=== PATIENT | female | born 1950 | race Caucasian/White ===

== ENCOUNTER 2016-10-01 16:41 | Emergency (ER) | payer BC ==
[2016-10-01] MEDS ORDERED: Albuterol/Ipratropium NEB.SOL* Albuterol 2.5 MG/Ipratropium 0.5 MG 3 ML INH ONE (16:47)
[2016-10-01 16:50] VITALS: BP 148/109
--- NOTE | 2016-10-01 16:53 | UC ---
Respiratory Complaint HPI - HPI Summary HPI Summary: In recent days has noticed an increased nasal drip that pt thinks is probably allergies. Has mild asthma that is not responding well to albuterol since yesterday. Has needed prednisone in the past and feels she may be at that point now. - History of Current Complaint Stated Complaint: ASTHMA Time Seen by Provider: 10/01/16 16:41 Hx Obtained From: Patient ?: No Onset/Duration: Gradual Onset, Lasting Days Timing: Constant Severity Initially: Mild Severity Currently: Mild Character: Cough: Nonproductive Aggravating Factors: Allergens, Exertion, Deep Breaths, Recumbent Position Alleviating Factors: Upright Position Associated Signs And Symptoms: Positive: Wheezing, Nasal Congestion. Negative: Fever, Chills - Allergies/Home Medications Allergies/Adverse Reactions: Allergies Allergy/AdvReac Type Severity Reaction Status Date / Time Ibuprofen [From Motrin] Allergy Rash Verified 05/19/13 18:01 Latex Allergy Rash Verified 10/01/16 16:46 Sulfa Antibiotics Allergy Hives Verified 05/19/13 18:01 iv contrast media Allergy See Comment Uncoded 05/19/13 18:01 Home Medications: Home Medications Albuterol 2.5MG/3ML (0.083%)* [Ventolin 2.5 MG/3 ML NEB.ANDREW*] 1 inh INH Q4H PRN 10/01/16 [History Confirmed 10/01/16] PMH/Surg Hx/FS Hx/Imm Hx Respiratory History: Asthma - Surgical History Surgical History: None - Social History Occupation: Employed Part-time Alcohol Use: None Substance Use Type: None Review of Systems Constitutional: Negative Skin: Negative Eyes: Negative ENT: Negative Respiratory: Shortness Of Breath, Cough Cardiovascular: Negative Gastrointestinal: Negative Genitourinary: Negative Motor: Negative Neurovascular: Negative Musculoskeletal: Negative Neurological: Negative Psychological: Negative All Other Systems Reviewed And Are Negative: Yes Physical Exam Triage Information Reviewed: Yes Appearance: Well-Appearing, No Pain Distress, Obese Vital Signs Reviewed: Yes Eye Exam: Normal Eyes: Positive: Conjunctiva Clear ENT Exam: Normal ENT: Positive: Normal ENT inspection, Hearing grossly normal, Pharynx normal, TMs normal Dental Exam: Normal Neck exam: Normal Respiratory Exam: Other - freq dry cough Respiratory: Positive: No respiratory distress, Wheezing - minimal at bases Cardiovascular Exam: Normal Cardiovascular: Positive: RRR, No Murmur Musculoskeletal Exam: Normal Neurological Exam: Normal Neurological: Positive: Alert Psychological Exam: Normal Re-Evaluation - Re-Evaluation First Eval Re-Evaluation Time: 17:16 Change: Improved - improved air movement, wheezing reduced, pt reports feeling better Respiratory Course/Dx - Course Course Of Treatment: Advised pt to see PCP next week if sx persist at all. - Differential Dx/Diagnosis Provider Diagnoses: Asthma exacerbation Discharge - Discharge Plan Condition: Stable Disposition: HOME Prescriptions: predniSONE TAB* [Deltasone TAB*] 50 mg PO DAILY #5 tab Patient Education Materials: Bronchospasm (ED) Referrals: Nicolette Gabriel MD [Primary Care Provider] - Additional Instructions: If you have severe difficulty breathing that your nebulized albuterol doesn't help, please go to the emergency department.
== END 2016-10-01 17:22 | disposition home or self-care (01) ==
LOC: UCEAST 16:41
DX: J45.901 Unspecified asthma with (acute) exacerbation (principal); R09.81 Nasal congestion; E66.9 Obesity, unspecified; Z88.2 Allergy status to sulfonamides; Z88.6 Allergy status to analgesic agent; Z91.041 Radiographic dye allergy status; Z91.040 Latex allergy status
CPT/HCPCS: 99202; A9270-GY; G0463

== ENCOUNTER 2017-04-22 15:14 | Emergency (ER) | payer MEDICARE, BC ==
[2017-04-22 15:55] VITALS: BP 148/68
--- NOTE | 2017-04-22 16:47 | UC ---
Throat Pain/Nasal [place]ako HPI - HPI Summary HPI Summary: 67 y/o female with h/o intermittent asthma, multiple other medical co- morbidities c/o 24 hours of- sinus pain, right sided, fever to 100.5, chills, fatigue, sinus pressure and coughing- non-productive. + sinus drainage. denies recent abx use. has inhaler, neb at home with medication. - History of Current Complaint Chief Complaint: UCRespiratory Stated Complaint: sinus complaint Time Seen by Provider: 04/22/17 16:14 Hx Obtained From: Patient ?: No Onset/Duration: Sudden Onset, Lasting Days - 24 hours Severity: Moderate Pain Intensity: 8 Pain Scale Used: 0-10 Numeric Cough: Nonproductive Associated Signs & Symptoms: Positive: Sinus Discomfort, Nasal Discharge, Fever , Vomiting - 2 days ago. Negative: Wheezing - Epiglottits Risk Factors Epiglottis Risk Factors: Negative - Allergies/Home Medications Allergies/Adverse Reactions: Allergies Allergy/AdvReac Type Severity Reaction Status Date / Time ibuprofen Allergy Rash Verified 04/22/17 15:56 latex Allergy Rash Verified 04/22/17 15:56 Sulfa (Sulfonamide Allergy Hives Verified 04/22/17 15:56 Antibiotics) iv contrast Allergy See Comment Uncoded 04/22/17 15:56 PMH/Surg Hx/FS Hx/Imm Hx Previously Healthy: No - intermittent asthma - Surgical History Surgical History: None - Social History Alcohol Use: None Substance Use Type: None Smoking Status (MU): Never Smoked Tobacco Review of Systems Constitutional: Fever, Chills, Fatigue ENT: Nasal Discharge, Sinus Congestion, Sinus Pain/Tenderness Respiratory: Cough Is Patient Immunocompromised?: No All Other Systems Reviewed And Are Negative: Yes Physical Exam Triage Information Reviewed: Yes Appearance: Well-Appearing, No Pain Distress, Well-Nourished Vital Signs: Initial Vital Signs Temp 99.8 F 04/22/17 15:49 Pulse 107 04/22/17 15:49 Resp 20 04/22/17 15:49 BP 148/68 04/22/17 15:49 Pulse Ox 94 04/22/17 15:49 Vital Signs Reviewed: Yes Eyes: Positive: Conjunctiva Clear ENT: Positive: Pharynx normal, Nasal congestion - right sided frontal, TMs normal - b/l, Sinus tenderness - right sided frontal with percussion, Uvula midline. Negative: Pharyngeal erythema, TM bulging, TM dull, TM red, Tonsillar swelling, Tonsillar exudate, Hoarse voice Neck: Positive: Supple, Nontender, Enlarged Nodes @ - minimal submand Respiratory: Positive: Chest non-tender, Lungs clear, Normal breath sounds, No respiratory distress, No accessory muscle use, Respiratory distress. Negative: Crackles, Rhonchi, Stridor, Wheezing Cardiovascular: Positive: RRR, No Murmur Abdomen Description: Negative: CVA Tenderness (R), CVA Tenderness (L) Neurological: Positive: Fatigued Skin Exam: Normal Throat Pain/Nasal Course/Dx - Course Course Of Treatment: sinusitis, follow up with pcp within 2-3 days for re-eval, abx given, patient has medication for SOB if occurs - Differential Dx/Diagnosis Differential Diagnosis/HQI/PQRI: Influenza, Laryngitis, Otitis Media, Pharyngitis Provider Diagnoses: sinusitis Discharge - Discharge Plan Condition: Fair Disposition: HOME Prescriptions: Azithromyxin KOTA (NF) [Z-Kota (Zithromax) 250 mg tabs #6] 2 tab PO .TODAY, THEN 1 DAILY #6 tab Patient Education Materials: Sinusitis (ED) Referrals: Nicolette Gabriel MD [Primary Care Provider] - Additional Instructions: - Increase fluid intake - TYlenol as needed for fever, headache - GO to ER with increased headache, fever > 104, shortness of breath - Inhaler, nebulizers as needed for shortness of breath - antibiotics as directed - Follow up with primary care doctor within 2-3 days if no improvement
== END 2017-04-22 16:49 | disposition home or self-care (01) ==
LOC: UCEAST 15:14
DX: J32.9 Chronic sinusitis, unspecified (principal); J45.909 Unspecified asthma, uncomplicated; Z88.2 Allergy status to sulfonamides; Z88.6 Allergy status to analgesic agent; Z91.041 Radiographic dye allergy status; Z91.040 Latex allergy status
CPT/HCPCS: 99212; G0463

== ENCOUNTER 2018-01-26 14:16 | Emergency (ER) | payer MEDICARE, BC ==
--- OUTSIDE RECORDS SUMMARY | 2018-01-26 14:36 | XMS REPORT ---
:1950 External Reference #:[id number] Author Organization [facility] Address [address] [place] [address] Phone [phone] Care Team Providers Name Role Phone Nicolette Gabriel MD Care Team Information Director Fraud Unavailable Nicolette Gabriel MD Primary Care Physician Unavailable Payers Type Date Identification Numbers Payment Provider Subscriber Medicare Primary Effective: Policy Number: Medicare Renuka Mccollum 2017 [id number] PayID: [id number] [address] [place] [address] [facility] Policy Number: [id number] [facility] Renuka Mccollum PayID: [id number] [address] [place] [address] Problems Date Description Provider Status Onset: 11/16/2017 Diverticular disease of colon Cal Zamora Active M.D. Onset: 11/16/2017 Abnormal findings on dx imaging Cal Zamora Active of oth body structures M.Nasima Onset: 11/16/2017 Imaging of abdomen abnormal Cal Zamora Active M.D. 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 Onset: 06/14/2012 Chondromalacia of patella Jamar Dean MD, FACS Active Onset: 06/14/2012 Sprain of ankle Jamar Dean MD, DO Active Onset: 06/14/2012 Contusion of knee Jamar Dean MD, FACS Active Family History Date Family Member(s) Problem(s) Comments Father Diabetes Father due to Heart Disease () Father Heart Disease Father due to Diabetes () Mother Heart Attack First Brother due to Stroke () Second Brother due to Heart Disease () First Sister Cancer Social History Type Date Description Comments Marital Status Lives With Diet Patient is on a gluten-free diet Occupation Retired Cigarette Use Never Smoked Cigarettes ETOH Use Denies alcohol use Smoking Patient denies history of smoking Recreational Drug Use Never Used Drugs Daily Caffeine Patient consumes minimal amounts of caffeine Allergies, Adverse Reactions, Alerts Date Description Reaction Status Severity Comments 06/14/2012 Motrin active 06/14/2012 Sulfa Drugs active 06/14/2012 Contrast Dye active 03/10/2017 Latex active Medications Medication Date Status Form Strength Qnty SIG Indications Ordering Provider Calcium + D Active Tablets 315-200mg 1 tab qd Unknown /0000 -Unit Multivitamins Active Tablets 1 po qd Unknown /0000 Fish Oil Active Capsules 1000mg po bid Unknown /0000 Flaxseed Oil Active Capsules 1200mg 1 cap bid Unknown / Albuterol Active Powder 1 puff q4h Unknown /0000 prn Vitamin C Active Tablets 500mg 1 by mouth Unknown /0000 every day Fiber Complete Active Tablets 2 caps qd Unknown /0000 Fluticasone Active Suspension 50mcg/Act 1 spray to Unknown Propionate /0000 each nare every day Levocetirizine Active Tablets 5mg 1 by mouth Unknown Dihydrochloride /0000 every day Omeprazole Active Capsules DR 20mg 1 by mouth Unknown /0000 every day Probiotic Active Capsules 1 by mouth Unknown /0000 every day Epipen 2-Jose Active Solution 0.3mg/0.3 use as Unknown /0000 Auto-Inject ML directed as needed for allergic reaction Xyzal Hx Tablets 5mg 30tab po qhs Unknown /0000 s - 11/16 Advair Diskus Hx Aerosol 2 puff bid - 03/10 Flonase Hx Suspension 50mcg/Act 1 intranasal - qd 11/[address] OTC Hx Tablets [address] 20mg 1 po bid Unknown - 11/16 Vital Signs Date Vital Result Comment 01/10/2018 BP Systolic 129 mmHg BP Diastolic 65 mmHg Body Temperature 97.3 F Heart Rate 72 /min Respiratory Rate 16 /min Height 61.30 inches 5'1.30" Weight 176.38 lb BMI (Body Mass Index) 33.0 kg/m2 BSA (Body Surface Area) 1.80 m2 [place] body weight in kilograms 48 O2 % BldC Oximetry 98 % Pain Level 0 11/16/2017 BP Systolic Sitting Right Arm 124 mmHg BP Diastolic Sitting Right Arm 76 mmHg Heart Rate 71 /min Respiratory Rate 14 /min Height 62 inches 5'2" Weight 175.25 lb BMI (Body Mass Index) 32.1 kg/m2 BSA (Body Surface Area) 1.81 m2 [place] body weight in kilograms 50 O2 % BldC Oximetry 100 % 06/14/2012 BP Systolic Sitting Left Arm 120 mmHg BP Diastolic Sitting Left Arm 80 mmHg Height 62 inches 5'2" Weight 167.00 lb BMI (Body Mass Index) 30.5 kg/m2 BSA (Body Surface Area) 1.77 m2 Results Test Date Test Result H/L Range Note CBC W/Automated Diff 01/10/2018 White Blood Count 5.2 K/uL 3.1-10.7 1 Red Blood Count 4.85 M/uL 3.90-5.40 1 Hemoglobin 14.6 gm/dL 11.6-15.8 1 Hematocrit 45.2 % 36.0-46.1 1 Mean Cell Volume 93.2 fl 80.9-99.0 1 Mean Corpuscular HGB 30.1 pg 25.9-32.7 1 Mean Corpuscular HGB Conc 32.3 g/dL 30.8-34.3 1 Platelet Count 259 K/uL 155-360 1 Red Cell Distri Width SD 46.5 fl 3-47 1 Red Cell Distri Width %CV 14.0 % 11.7-14.4 1 Mean Platelet Volume 11.2 fL 8.9-12.4 1 Neut% 67.6 % 40.4-72.8 1 Lymph % 22.2 % 20.0-42.0 1 Tripp % 6.9 % 4.3-13.2 1 Eo% 2.9 % 0.0-6.6 1 Bas% 0.4 % 0.0-1.1 1 Neut# 3.51 K/uL 1.8-7.0 1 Lymph # 1.15 K/uL 1.0-4.0 1 Tripp # 0.36 K/uL 0.3-0.9 1 Eos # 0.15 K/uL 0.0-0.5 1 Baso # 0.02 K/uL 0.0-0.1 1 Comprehensive Metabolic Panel 01/10/2018 Glucose 89 mg/dL 74-106 1 BUN 18 mg/dL 7-18 1 Creatinine 1.0 mg/dL 0.6-1.3 1 Glom Filtration Rate, Estimate 59 mL/min >60 1 If >60 mL/min >60 1, 2 BUN/Creat 18.0 ratio 1 Sodium 138 mmol/L 136-145 1 Potassium 4.3 mmol/L 3.5-5.1 1 Chloride 103 mmol/L 98-107 1 Carbon Dioxide 30 mmol/L 21-32 1 Anion Gap 5 mEq/L Low 8-16 1 Calcium 9.2 mg/dL 8.5-10.1 1 Total Protein 8.4 g/dL High 6.4-8.2 1 Albumin 4.0 g/dL 3.4-5.0 1 Globulin 4.4 g/dL High 1.9-4.3 1 Alb/Glob 0.9 ratio 1 Bilirubin,Total 0.5 mg/dL 0.2-1.0 1 Sgot/Ast 22 U/L 15-37 1 SGPT/Alt 29 U/L 12-78 1 Alkaline Phosphatase 64 U/L 45-117 1 Laboratory test finding 01/10/2018 LDH 232 U/L 84-246 1 Immunoglobulins A/G/M, QN, 01/10/2018 Immunoglobulin 1014 mg/dL 700-1600 1 Ser G,Quant,Serum Immunoglobulin A 204 mg/dL 87-352 1 Immunoglobulin M 60 mg/dL 26-217 1 Laboratory test 01/10/2018 Sedimentation Rate 17 mm/hr 0-30 1, 3 finding Toxoplasma Abs 01/10/2018 Toxoplasma IgG Antibody 20.1 IU/mL High 0.0-7.1 1, 4 Igg/Igm Toxoplasma IgM Antibody <3.0 AU/mL 0.0-7.9 1, 5 Comment: (SEE NOTE) 1, 6 Laboratory test finding 01/10/2018 Uric Acid 6.0 mg/dL 2.6-6.0 [address] Badillo Slide on file in <SEE NOTE> 1, 7 Ova1 11/17/2017 Cancer Antigen 125 8.7 U/mL 0.0-38.1 8, 9 He4 60.5 pmol/L 0.0-96.5 8, 10 Premenopausal [place] 1.09 See below 8 Premenopausal Interp: (SEE NOTE) 8, 11 Postmenopausal [place] 0.96 See below 8 Postmenopausal Interp: (SEE NOTE) 8, 12 Comment (SEE NOTE) 8, 13 CBC W/Automated Diff 11/17/2017 White Blood Count 4.0 K/uL 3.1-10.7 8 Red Blood Count 4.92 M/uL 3.90-5.40 8 Hemoglobin 14.8 gm/dL 11.6-15.8 8 Hematocrit 45.2 % 36.0-46.1 8 Mean Cell Volume 91.9 fl 80.9-99.0 8 Mean Corpuscular HGB 30.1 pg 25.9-32.7 8 Mean Corpuscular HGB Conc 32.7 g/dL 30.8-34.3 8 Platelet Count 259 K/uL 155-360 8 Red Cell Distri Width SD 47.9 fl High 3-47 8 Red Cell Distri Width %CV 14.6 % High 11.7-14.4 8 Mean Platelet Volume 10.9 fL 8.9-12.4 8 Neut% 56.8 % 40.4-72.8 8 Lymph % 31.3 % 20.0-42.0 8 Tripp % 7.8 % 4.3-13.2 8 Eo% 3.8 % 0.0-6.6 8 Bas% 0.3 % 0.0-1.1 8 Neut# 2.28 K/uL 1.8-7.0 8 Lymph # 1.25 K/uL 1.0-4.0 8 Tripp # 0.31 K/uL 0.3-0.9 8 Eos # 0.15 K/uL 0.0-0.5 8 Baso # 0.01 K/uL 0.0-0.1 8 Laboratory test finding 11/17/2017 Cea 1.3 ng/mL 8, 14 Arthritis Panel([place]) 06/28/2012 Sedimentation Rate 1 mm/hr 0-30 Rheumatoid Factor Screen NEGATIVE Negative Uric Acid 4.2 mg/dL 2.1-7.4 Antinuclear Antibodies, Ifa Negative . 15 CBS W/Automated Diff 06/28/2012 White Blood Count 6.2 K/uL 3.1-10.7 Red Blood Count 5.08 M/uL 3.90-5.40 Hemoglobin 15.8 gm/dL 11.6-15.8 Hematocrit 46.6 % High 36.0-46.1 Mean Cell Volume 91.7 fl 80.9-99.0 Mean Corpuscular HGB 31.1 pg 25.9-32.7 Mean Corpuscular HGB Conc 33.9 g/dL 30.8-34.3 Platelet Count 279 K/uL 155-360 Red Cell Distri Width SD 43.6 fl 3-47 Red Cell Distri Width %CV 13.1 % 11.7-14.4 Mean Platelet Volume 11.1 fL 8.9-12.4 Neut% 60.8 % 40.4-72.8 Lymph % 30.3 % 17.0-46.1 Tripp % 6.6 % 4.3-13.2 Eo% 2.1 % 0.0-6.6 Bas% 0.2 % 0.0-1.1 Neut# 3.79 K/uL 1.0-7.0 Lymph # 1.89 K/uL 0.8-3.4 Tripp # 0.41 K/uL 0.3-0.9 Eos # 0.13 K/uL 0.0-0.5 Baso # 0.01 K/uL 0.0-0.1 1 R93.5,K57.30 2 Note: Persistent reduction for 3 months or more in an eGFR <60 mL/min/1.73 m2 defines CKD. Patients with eGFR values >/=60 mL/min/1.73 m2 may also have CKD if evidence of persistent proteinuria is present. The original MDRD equation for estimated GFR is not valid for patients less than 18 years of age. Additional information may be found at www.kdoqi.org. 3 Method: Sediplast Modified Westergren 4 Negative <7.2 Equivocal 7.2 - 8.7 Positive >8.7 5 Negative <8.0 Equivocal 8.0 - 9.9 Positive >9.9 6 Results consistent with previous infection for more than six months. Performed at: [address] [id number] Document Preparation Specialist: Marimar Mackey MD, Phone: [phone] Slide on file in lab 8 R93.89, R93.5 9 Adebayo ECLIA methodology Values obtained with different assay methods or kits cannot be used interchangeably. Results cannot be interpreted as absolute evidence of the presence or absence of malignant disease. 10 Adebayo ECLIA methodology 11 If the patient is premenopausal, then the premenopausal ADY score of less than 1.14 is consistent with a low likelihood of finding a malignancy on surgery. 12 If the patient is postmenopausal, then the postmenopausal ADY score of less than 2.99 is consistent with a low likelihood of finding a malignancy on surgery. 13 The Risk for Ovarian Malignancy Algorithm (ADY) test is intended to aid in assessing whether a premenopausal or postmenopausal woman who presents with an ovarian adnexal mass is at high or low likelihood of finding malignancy on surgery. ADY is indicated for women who meet the following criteria: over age 18; ovarian adnexal mass present for which surgery is planned, and not yet referred to an oncologist. ADY must be interpreted in conjunction with an independent clinical and radiological assessment. The test is not intended as a screening or stand-alone diagnostic assay. HE4 and CA125 values obtained with different assay methods or kits cannot be used interchangeably. Performed at: [address] [id number] Document Preparation Specialist: Marimar Mackey MD, Phone: [phone] Performed at: [address] [id number] Document Preparation Specialist: Mateus Dunham MD, Phone: [phone] 14 Non-smokers ..... 0.0-3.0 ng/mL Smokers ......... 0.0-5.0 ng/mL THIS ASSAY IS NOT INTENDED A CANCER SCREENING TEST The concentration of CEA in a given specimen, determined with assays from different manufacturers, can vary due to differences in assay methods and reagent specificity. Values obtained from different assay methods cannot be used interchangeably. Method: Siemens Dimension [place] Chemiluminescent Immunoassay 15 Negative <1:80 Borderline 1:80 Positive >1:80 Performed at: RN - [facility] [address] [id number] Document Preparation Specialist: Marimar Mackey MD, Phone: [phone] Procedures Date CPT Code Description Status 10/04/2016 74152 Eye Exam New Patient Comprehensive Completed 06/14/2012 40324 Radiology, Ankle Complete Completed 06/14/2012 13948 Radiology, Knee 3 Views Completed Encounters Type Date Location Provider CPT E/M Dx Office Visit 11/16/2017 3:00p Surgical Office Cal Zamora [address]1757 R93.5 Felicity Higuera R93.89 K57.30 Office Visit 03/10/2017 10:30a [place] [address] H11.442 Office Visit 08/03/2012 8:45a Orthopaedic Office Jamar Dean, [address] 712.26 MD, FACS 845.00 726.73 717.7 Office Visit 06/28/2012 1:15p [place], [address] 924.11 FACS 712.26 845.00 726.73 Office Visit 06/14/2012 10:00a [place], [address] 719.47 FACS 719.46 924.11 845.00 717.7 712.26 726.73 Plan of Care Future Appointment(s):01/23/2018 10:00 am - Michelle Badillo DO at Oncology Office
[2018-01-26] MEDS ORDERED: NS 0.9% 1000 ML* 1,000 ML IV ONE (14:48)
--- NOTE | 2018-01-26 14:51 | ED ---
Neurological HPI - HPI Summary HPI Summary: Pt is a 67 y/o female who presents to the ED c/o weakness. Yesterday she began to have bilateral quadriceps weakness and several bouts of diarrhea. This morning the weakness progressed, and she now has difficulty walking. She feels that her legs are equally weak. Pt was sent by her PCP. She also c/o intermittent groin pain and runny nose. Pt denies any double vision, incontinence, difficulty with BMs, numbness, fever, congestion, or sore throat. She arrives in a wheelchair, and normally walks by herself. She is accompanied by her who has Parkinsons. Pt notes that she had lymph node swelling around either side of her aorta found on CT A/P. A colonoscopy a few months ago revealed diverticulosis. She has a familial essential tremor for the past 10 years. - History of Current Complaint Chief Complaint: EDWeakness Stated Complaint: GENERAL WEAKNESS Time Seen by Provider: 01/26/18 14:28 Hx Obtained From: Patient Onset/Duration: Gradual Onset, Started days ago - 1, Worse Since Timing: Constant Neurological Deficit Location: RLE, LLE Pain Intensity: 1 Character: Weak Aggravating: Nothing Alleviating: Nothing Associated Signs and Symptoms: Positive: Weakness, Diarrhea. Negative: Visual Changes, Incontinent Bladder/Bowel, Fever - Allergy/Home Medications Allergies/Adverse Reactions: Allergies Allergy/AdvReac Type Severity Reaction Status Date / Time ibuprofen Allergy Rash Verified 04/22/17 15:56 latex Allergy Rash Verified 04/22/17 15:56 Sulfa (Sulfonamide Allergy Hives Verified 04/22/17 15:56 Antibiotics) iv contrast Allergy See Comment Uncoded 04/22/17 15:56 Home Medications: Home Medications Albuterol inh POWDER (NF) [Proair Respiclick] 2 puff INH Q4HR 01/26/18 [History Confirmed 01/26/18] Ascorbic Acid TAB* [Vitamin C TAB*] 1,000 mg PO DAILY 01/26/18 [History Confirmed 01/26/18] Bacillus Coagulans [Probiotic] 1 cap PO DAILY 01/26/18 [History Confirmed ] Calcium Carbonate [Calcium] 1,500 mg PO DAILY 01/26/18 [History Confirmed ] Calcium Polycarbophil TAB* [Fibercon TAB*] 625 mg PO DAILY 01/26/18 [History Confirmed 01/26/18] Flaxseed Oil [Alsey-3 Flaxseed Oil] 1,200 mg PO BID 01/26/18 [History Confirmed 01/26/18] Fluticasone NASAL SPRAY 50MCG* [Flonase NASAL SPRAY 50MCG*] 1 spray BOTH NARES BID 01/26/18 [History Confirmed 01/26/18] LevoCETirizine TAB (NF) [Xyzal TAB (NF)] 5 mg PO QPM 01/26/18 [History Confirmed 01/26/18] Multivitamins/Minerals TAB* [Theragran/minerals TAB*] 1 tab PO DAILY 01/26/18 [ History Confirmed 01/26/18] Alsey-3 Fatty Acids (Nf) [Fish Oil (NF)] 1,000 mg PO DAILY 01/26/18 [History Confirmed 01/26/18] PMH/Surg Hx/FS Hx/Imm Hx Cardiovascular History: Reports: Hx Hypercholesterolemia Respiratory History: Reports: Hx Asthma GI History: Reports: Hx Diverticulosis, Other GI Disorders - colon polyp Musculoskeletal History: Reports: Hx Osteoporosis Sensory History: Reports: Hx Contacts or Glasses Infectious Disease History: No Infectious Disease History: Denies: Traveled Outside the [place] in Last 30 Days - Family History Known Family History: Positive: Cardiac Disease, Hypertension, Diabetes - Social History Alcohol Use: None Hx Substance Use: No Substance Use Type: Reports: None Hx Tobacco Use: No Smoking Status (MU): Never Smoked Tobacco Review of Systems Negative: Fever Negative: Diplopia Positive: Nasal Discharge. Negative: Sore Throat Positive: Cough Positive: Diarrhea, Other - NEGATIVE: incontinence, difficulty with BMs Negative: incontinence Positive: Weakness - quadricep. Negative: Numbness All Other Systems Reviewed And Are Negative: Yes Physical Exam - Summary Physical Exam Summary: Appearance: Well appearing, no pain distress Skin: warm, dry, reflects adequate perfusion Head/face: normal Eyes: EOMI, ANA ENT: mucous membranes moist Neck: supple, non-tender Respiratory: CTA, breath sounds present Cardiovascular: RRR, pulses symmetrical Abdomen: non-tender, soft Bowel Sounds: present Musculoskeletal: normal, strength/ROM intact Neuro: A&Ox3, bilateral quadriceps weakness, cranial nerves intact, able to stand and bear weight on her own, normal strength of lower legs, impaired coordination of left leg, patellar reflexes brisk bilaterally GCS: 15 Triage Information Reviewed: Yes Vital Signs On Initial Exam: Initial Vitals Temp Pulse Resp BP Pulse Ox 98.3 F 82 18 145/73 100 01/26/18 14:18 01/26/18 14:18 01/26/18 14:18 01/26/18 14:18 01/26/18 14:18 Vital Signs Reviewed: Yes Diagnostics - Vital Signs Vital Signs Temp Pulse Resp BP Pulse Ox 01/26/18 14:18 98.3 F 82 18 145/73 100 - Laboratory Result Diagrams: 01/26/18 15:31 01/26/18 15:31 Lab Statement: Any lab studies that have been ordered have been reviewed, and results considered in the medical decision making process. - CT Brain CT CT Interpretation Completed By: Radiologist Summary of CT Findings: NO ACUTE INTRACRANIAL PATHOLOGY. ED physician reviewed radiology report. Lumbar Spine CT CT Interpretation Completed By: Radiologist Summary of CT Findings: At L5-S1 there is moderately severe bilateral foraminal stenosis secondary to rostrocaudal subluxation due to disc height loss, grade 3 anterolisthesis secondary to chronic appearing bilateral L5 spondylolysis and degenerative disease as well as posterior element hypertrophy. ED physician reviewed radiology report. - EKG 16:16 Cardiac Rate: NL - 83 bpm EKG Rhythm: Sinus Rhythm ST Segment: Normal Summary of EKG Findings: nl axis, nl intervals NIH Scale - NIH Scale Level of Consciousness: Alert/Keenly Responsive Ask Patient the Month and His/Her Age: Both Correct Ask Pt to Open/Close Eyes and Atmospheric Scientist/Release Non-Paretic Hand: Both Correctly Best Gaze (Only Horizontal Eye Movement): Normal Visual Field Testing: No Visual Loss Facial Paresis-Pt to Smile & Close Eyes or Grimace Symmetry: Normal/Symmetrical Motor Function - Right Arm: No Drift-Holds 10 Seconds Motor Function - Left Arm: No Drift-Holds 10 Seconds Motor Function - Right Leg: Drifts LT 10 seconds Motor Function - Left Leg: Drifts LT 10 seconds Limb Ataxia-Must be out of Proportion to Weakness Present: Absent Sensory (Use Pinprick to Test Arms/Legs/Trunk/Face): Normal Best Language (Describe Picture, Name Items): No Aphasia Dysarthria (Read Several Words): Normal Extinction and Inattention: No Abnormality Total Score: 2 Re-Evaluation - Re-Evaluation First Eval Re-Evaluation Time: 15:11 Change: Unchanged Comment: Tested reflexes. Course/Dx - Course Course Of Treatment: Nurse's note reviewed. She with isolated bilateral quadriceps weakness without significant tenderness for me. Head CT negative. Lumbar spine shows L5-S1 neural foraminal stenosis. Neuro Dr Teixeira saw and examined and finds inconsistent findings. She had R thigh tenderness for him. Able to stand and walk with antalgia. Reflexes normal. He suggests d/c with outpt referral. There may be some sympathetic component as her walks with similar gate due to Parkinsonism (supported with pamela crutches). D/C to f/u with PMD. - Differential Dx Differential Diagnoses Neuro: Positive: Other - GBS, Matamoros Nolen variant, MS, disc herniation, Myositis - Diagnoses Provider Diagnoses: Muscle weakness, Right thigh pain - Physician Notifications Discussed Care Of Patient With: Anahy Armando Time Discussed With Above Provider: 14:49 Instructed by Provider To: Other - Dr. Armando will see the pt in the ED. At 16: [address] Armando, who said the pt's neurological exam was completely normal and the pt can be discharged. Discharge - Sign-Out/Discharge Documenting (check all that apply): Patient Departure - Discharge - Discharge Plan Condition: Improved Disposition: HOME Patient Education Materials: Weakness (ED) Referrals: Nicolette Gabriel MD [Primary Care Provider] - Additional Instructions: Walk with a cane as needed. Tylenol, ice as needed for discomfort. Call first thing Monday morning for prompt follow-up with your family physician. Return with fever, increased weakness, numbness, worse, new symptoms or other concerns as discussed. - Billing Disposition and Condition Condition: IMPROVED Disposition: Home - Attestation Statements Document Initiated by Popeyeibe: Yes Documenting Scribe: Fransisca Pack Provider For Whom King is Documenting (Include Credential): Abrahan Tinoco MD Scribe Attestation: Fransisca East scribed for Abrahan Tinoco MD on 01/26/18 at 1901. Scribe Documentation Reviewed: Yes Provider Attestation: The documentation as recorded by the Fransisca morales accurately reflects the service I personally performed and the decisions made by me, Abrahan Tinoco MD Status of Scribe Document: Viewed
[2018-01-26 15:44] LABS: ABS Basophils 0 10^3/ul (0-0.2); ABS Eosinophils 0 10^3/ul (0-0.6); ABS Lymphocytes 1.3 10^3/ul (1.0-4.8); ABS Monocytes 0.4 10^3/ul (0-0.8); ABS Neutrophils 4.7 10^3/ul (1.5-7.7); ABS Nucleated RBC 0 10^3/ul; Eosinophil % 0.7 %; Hematocrit 46 % (35-47); Hemoglobin 15.3 g/dl (12.0-16.0); Lymphocyte % 19.6 %; Mean Corpuscular HGB Conc 33 g/dl (31-36); Mean Corpuscular Hemoglobin 30 pg (27-31); Mean Corpuscular Volume 91 fL (80-97); Mean Platelet Volume 8.8 fL (7.4-10.4); Nucleated Red Blood Cells % 0; Platelet Count 268 10^3/ul (150-450); Red Blood Count 5.09 10^6/ul (4.00-5.40); Red Cell Distribution Width 14 % (10.5-15); White Blood Count 6.4 10^3/ul (3.5-10.8)
[2018-01-26 15:50] LABS: INR 0.94 (0.77-1.02)
[2018-01-26 16:03] LABS: EGFR Non-African American 79.8 (>60)
[2018-01-26 17:22] VITALS: BP 128/66
--- NOTE | 2018-01-26 23:52 | CONS ---
NEUROLOGY CONSULTATION NOTE: DATE OF CONSULT: 01/26/18 CONSULTING PROVIDER: Dr. Abrahan Tinoco. REASON FOR CONSULT: Lower extremity fatigue/malaise/subjective weakness. CHIEF COMPLAINT: "My legs won't work." HISTORY OF PRESENT ILLNESS: Ms. Estefanía Bianchi is a 67-year-old, retired, right - handed account management specialist, who had a gradual onset of lower extremity ( weakness). The patient had a diarrheal illness yesterday. She also has history of enlarged lymph nodes around the abdominal aorta. She stated that she was working all day yesterday around the house and around the chicken barn when she noticed that she was having trouble walking. Her right leg around the groin region is painful. She denied any constipation or urinary incontinence. She denied any back pain. She denied any radiating pain down the lower extremity. The pain is intermittent and is worse when moving the right leg. The patient stated that she has had falls in the past, the last fall was in June of 2017. She denied any memory problem. She denied any shuffling gait. She does have essential tremors of the head. When discussing this further and after the examination, the patient stated that she is extremely stressed out due to increasing workload at home and caring for her , who has Parkinson's. Her apparently fell a week ago and suffered a large hematoma on the right lateral leg. She has to snow blow and take care of chores around the house. She was referred by her primary care doctor to the ED for further evaluation of bilateral leg weakness. PAST MEDICAL HISTORY: Essential tremor, asthma, allergies, diverticular disease , and lymph node enlargement in the aortic region. She stated that she was recently told that these were not cancerous. PAST SURGICAL HISTORY: No past surgical history. MEDICATIONS: 1. Omeprazole 20 mg daily. 2. Bacillus probiotic 1 cap p.o. daily. 3. Vitamin C tablet 1000 mg p.o. daily. 4. Flaxseed oil 1200 mg p.o. b.i.d. 5. Halliday 1000 mg p.o. daily. 6. Calcium 1500 mg p.o. daily. 7. Albuterol 2 puffs inhaler. 8. Levocetirizine 5 mg p.o. q.p.m. 9. Fluticasone 1 spray both nares b.i.d. ALLERGIES: IV DYE, IBUPROFEN, SULFA DRUGS, and LATEX. FAMILY HISTORY: Her brother and sister suffered from stroke. SOCIAL HISTORY: She denied any tobacco or alcohol use. She is retired. REVIEW OF SYSTEMS: A 14-point review of systems was obtained and otherwise negative except for what was mentioned in the HPI. PHYSICAL EXAM: Vitals: Temperature is 98.3, pulse of 82, respirations of 18, oxygen saturation of 100%, blood pressure of 145/73. General: Well-nourished, well-developed female, in no acute distress. She is laughing with the examiner when she was asked to raise her legs and she could not raise them. I expected her to be in slight distress due to the weakness, but instead she is laughing. Head: Normocephalic, atraumatic. Eyes: Conjunctivae/corneas are clear. Neck is supple and symmetrical. Lungs: Clear to auscultation bilaterally. Cardiovascular: Regular rate and rhythm with normal S1, S2. Extremities: No hammertoes or high arches. The patient has tenderness to deep palpation near the medial aspect of the right thigh. Skin: No skin lesions or lacerations. Psych: Affect is broad and normal mood. Neurological Examination: Mental Status: Awake, alert, and oriented to person, place, time, and general circumstances. Speech and language including expression, naming, repetition, and comprehension were assessed and found to be normal. Cranial Nerves: Normal confrontation testing bilaterally. The pupils are mid range and reactive to light. Normal consensual response. Sensation is intact on the forehead, cheeks, and jaw region. No facial asymmetry. She is able to hear throughout the history process. Symmetrical palatal elevation. Normal strength against shoulder resistance. Tongue is symmetrical and midline with no atrophy or fasciculation. Motor Examination: No abnormal movements or pronator drift. Normal bulk and tone throughout. No fasciculation. Neck extension 5/5, shoulder abduction 5/5, elbow flexion and extension 5/5, wrist flexion and extension 5/5. Hip flexion is 4/5, restricted due to pain in the quadriceps region on the right and right inguinal hernia. Abduction is 5/5, knee flexion and extension 5/5, ankle dorsiflexion and plantarflexion 5/5, great toe extension is 5/5. Sensation is intact to light touch, pinprick, and temperature sensation throughout. Vibratory sensation is 16 seconds at the toes bilaterally. Normal proprioception. Coordination: Normal exakfi-op-xnej and hjqx-yo-[id number] testing bilaterally. Reflexes 2+ throughout with flexor plantar responses. Gait: Abasia-astasia type of gait with antalgic gait on the right side. DIAGNOSTIC STUDIES/LAB DATA: WBC 6.4, hemoglobin 15.3, hematocrit 46, platelet count of 268. INR is 0.94. Sodium 140, potassium 4.5, chloride 105, carbon dioxide is 29, anion gap is 6, BUN is 16, creatinine is 0.73. C-reactive protein is 10.32. ESR is 26. Imaging studies: Brain, CT head without contrast showed no acute intracranial pathology, completed on 01/26/18, personally reviewed. CT of the lumbar spine without contrast completed on 01/26/18, personally reviewed. There is L5-S1 [id number] bilateral foraminal stenosis secondary to rostrocaudal subluxation due to disk height loss, grade 3 anterolisthesis secondary to chronic-appearing bilateral L5 spondylosis and degenerative disk, as well as posterior element hypertrophy. IMPRESSION AND RECOMMENDATIONS: Ms. Estefanía Bianchi is a 67-year-old female with history of asthma and tremors, who presented to [facility] with complaint of new onset, bilateral lower extremity "weakness," but with further explanation, she stated that it is more of fatigue and malaise of the extremities. On examination, she has tenderness to deep palpation around the medial aspect of the right lower thigh with restricted movement of the hip flexors due to pain around the groin region. She has no evidence of any sensory abnormality, reflex asymmetry, or upper extremity weakness. There was evidence of lumbar spine disease at L5-S1 on CT, which would not correlate with her physical examination; therefore, I suspect the patient has an underlying musculoskeletal strain that is causing her the acute to subacute pain in the proximal right lower extremity that is restricting her ability to flex the right leg and ambulate appropriately. She did have an abasia-astasia type of gait with antalgic gait due to the pain. There is no evidence of any footdrop or symptomatic lumbosacral disease. She has no neck pain. She has no evidence of upper motor neuron signs to suspect vascular phenomenon. I am suspicious that the patient may also have a functional disorder due to her recent stressors of her falling, his progression of Parkinson's disease and her responsibilities at home after her fpc. However, this is a diagnosis of exclusion. I would recommend physical therapy and pain control at this time. I encouraged and advised her and her to come back to the ER if she develops any new neurological deficits such as headache, weakness, paresthesias, or any impairment in her bowel or bladder function. The patient stated that she will try to rest this weekend and hopefully some of her symptoms may improve. I will set up a followup appointment in 4 to 6 weeks to evaluate her in our outpatient hospital followup neurology clinic. [id number]/[facility] #: [id number] WALKER
== END 2018-01-26 17:19 | disposition home or self-care (01) ==
LOC: ED 14:16
DX: M62.81 Muscle weakness (generalized) (principal); M79.651 Pain in right thigh; E78.00 Pure hypercholesterolemia, unspecified; J45.909 Unspecified asthma, uncomplicated; M81.0 Age-related osteoporosis without current pathological fracture
CPT/HCPCS: 36415; 70450; 72131; 80053; 82306; 82550; 82607; 83605; 84484; 85025; 85610; 85652; 86140; 93005; 96360; 96361; 99282